=== PATIENT | female | born 1960 | race Caucasian/White ===

== ENCOUNTER 2024-01-27 09:27 | Outpatient (CLI) | payer OTHER, SELFPAY ==
[2024-01-27 23:36] LABS: Chlamydia DNA Amplified* NOT DETECTED (No Detected); GC DNA Amplified* NOT DETECTED (No Detected)
== END 2024-01-27 09:28 | disposition home or self-care (01) ==
PROVIDERS: PCP Physician Assistant Medical; Visit Provider Physician Assistant Medical
DX: I10 Essential (primary) hypertension (principal); Z13.29 Encounter for screening for other suspected endocrine disorder; Z11.3 Encounter for screening for infections with a predominantly sexual mode of transmission
CPT/HCPCS: 80053; 84443; 86703; 86803; 87491; 87591

== ENCOUNTER 2024-02-08 08:29 | Outpatient (CLI) | payer OTHER, SELFPAY | END 2024-02-08 08:30 | disposition home or self-care (01) | LOC: NFLDREF 02-09 06:39 | PROVIDERS: PCP Physician Assistant Medical; Referring Provider Physician Assistant Medical; Visit Provider Physician Assistant Medical | DX: Z13.220 Encounter for screening for lipoid disorders (principal) | CPT/HCPCS: 80061 ==

== ENCOUNTER 2024-02-15 13:45 | Outpatient (CLI) | payer OTHER, SELFPAY ==
--- NOTE | 2024-02-15 14:00 | CT_ITS ---
Patient: AGNIESZKA TIDWELL Facility:?[facility] Patient ID:?[id number] Site Patient ID:?[id number]. Site :?[id number] Study:?CT-Chest LUNG SCREENING LOW-DOSE W/O-02/15/2024 2:03:51 PM Ordering Physician:HEIKE Final Report: INDICATION: Lung cancer screening. Fifty year smoking history. TECHNIQUE: Low-dose volumetric helical scanning of the thorax was performed without IV contrast material. Coronal and sagittal reconstructions were obtained. COMPARISON: None. FINDINGS: No pulmonary nodule is identified. The lungs are clear. There is no significant airway abnormality. No pleural effusion is demonstrated. There is no mediastinal or hilar lymph adenopathy. The heart size is normal. Images of the upper abdomen demonstrate a fatty, mildly enlarged liver. IMPRESSION: 1. No pulmonary nodule evident. Lung-RADS CATEGORY 1: NEGATIVE: Continue annual screening with low-dose chest CT in 12 months is recommended. 2. Fatty, mildly enlarged liver. Please note that all CT scans at this facility use dose modulation, iterative reconstruction, and/or weight-based dosing when appropriate to reduce radiation dose to as low as reasonably achievable. Dictated by Artur Bell MD @ 02/16/2024 9:55:45 AM Signed by:?Artur Bell MD @02/16/2024 9:55:45 AM (Electronic Signature)
== END 2024-02-15 13:46 | disposition home or self-care (01) ==
LOC: CT 13:46
PROVIDERS: PCP Physician Assistant Medical; Visit Provider Physician Assistant Medical
DX: Z12.2 Encounter for screening for malignant neoplasm of respiratory organs (principal); K76.0 Fatty (change of) liver, not elsewhere classified; Z72.0 Tobacco use
CPT/HCPCS: 71271

== ENCOUNTER 2024-04-20 10:00 | Outpatient (CLI) | payer OTHER, SELFPAY | END 2024-04-20 10:01 | disposition home or self-care (01) | PROVIDERS: PCP Physician Assistant Medical; Visit Provider Physician Assistant Medical | DX: E78.5 Hyperlipidemia, unspecified (principal); I10 Essential (primary) hypertension | CPT/HCPCS: 80053; 80061 ==

== ENCOUNTER 2024-05-25 07:33 | Outpatient (CLI) | payer OTHER, SELFPAY ==
[2024-05-25 09:33] VITALS: BP 140/80; PULSE 104; RESP 18
[2024-05-25 10:52] VITALS: BP 140/80; PULSE 105; RESP 18
--- NOTE | 2024-05-25 14:51 | W.PM.STED ---
Stress Test Note Date Date of test: 05/25/24 Providers Primary care provider: Yris Nickerson Stress test physician: Mike Mcpherson Stress Test Note Stress test ordered: Stress Myoview Indication for test: Shortness of breath Stress test medicine: None Results discussion: Patient is a very nice 63-year-old lady who presents for the above test after discussion the risks benefits side effects she would like to proceed. Pretest EKG shows occasional PACs, ventricular rate is 85, the blood pressure 132/78. Standard Bebo protocol is done for a duration of 5 minutes, she achieved a metabolic equivalent of 6.8 Mets, with a maximum heart rate of 142 which is 106% of the maximum. She did have some shortness of breath and test had to be terminated because of this. During this test there were no EKG changes suggestive of ischemia. She recovered normally Impression: Negative electrographic portion of stress Myoview, inducement of shortness of breath, conditioning was felt to be poor Follow up suggested: Await nuclear images, clinical correlation with these will be needed, patient left this testing facility in good condition, there were no complication
== END 2024-05-25 10:35 | disposition home or self-care (01) ==
LOC: STRESS 07:33
PROVIDERS: PCP Physician Assistant Medical; Visit Provider Physician Assistant Medical
DX: R06.00 Dyspnea, unspecified (principal)
CPT/HCPCS: 78452; 93016; 93017; A9500

== ENCOUNTER 2025-04-19 14:15 | Outpatient (CLI) | payer BC, SELFPAY ==
--- NOTE | 2025-04-19 14:30 | XR_ITS ---
Patient: AGNIESZKA TIDWELL Facility:?[facility] Patient ID:?[id number] Site Patient ID:?[id number]. Site :?1960 Study:?DEXA-Bone Density L SPINE & BILAT HIPS-04/19/2025 4:06:16 PM Ordering Physician:DENNIS BURROUGHS Final Report: DXA BONE MINERAL DENSITY STUDY Reason for exam: Asymptomatic menopausal state. Current height (in): 66. Weight (lb): 215. Menopause age: 49. Ethnicity: White. 1. Have you had a previous hip or vertebral fracture? No. 2. Have you had any fractures during your adult life which did not result from significant trauma (e.g., auto accident)? No. 3. Did either of your parents have a hip fracture? No. 4. Do you smoke? Yes. 5. Have you ever taken Glucocorticoids? Yes. 6. Do you have rheumatoid arthritis? No. 7. Do you have secondary osteoporosis? No. 8. Do you drink 3 or more alcoholic drinks per day? No. 9. Are you being treated for osteoporosis? No. 10. Have you ever taken any of the following medications: Actonel, Evista, Fosamax, Miacalcin, Reclast, Boniva, Forteo, HRT (i.e. estrogen/hormone therapy), Protelos, Prolia, Vitamin D, Calcium, other ? please specify. ANSWER: No. 11. Do you have any of the following medical conditions: Anorexia or bulimia, asthma or emphysema, end stage renal disease, hyperparathyroidism, any seizure disorders, cancer, inflammatory bowel diseases, hysterectomy, other ? please specify. ANSWER: No. 12. What was your maximum height (inches)? 66. 13. Do you perform weight bearing exercise regularly? No. 14. Do you regularly consume dairy products? Yes. No. 15. Do you drink caffeinated beverages? Yes. 16. At what age did your period start? 11. 17. Are you premenopausal? No. 18. How many full-term pregnancies have you had? 2. 19. Have you ever missed your period for more than 6 months in a row (not including or menopause)? No. TECHNIQUE: Bone mineral density study was performed using the [employer]. FINDINGS: The results of the study expressed as bone mineral density (BMD) are as follows: Lumbar spine L1 to L4: BMD: 0.923 g/cm2. T-score: -1.1. Z-score: 0.7. Neck Left: BMD: 0.789 g/cm2. T-score: -0.5. Z-score: 1.0. Right: BMD: 0.764 g/cm2. T-score: -0.8. Z-score: 0.8. Total Left: BMD: 0.886 g/cm2. T-score: -0.5. Z-score: 0.8. Right: BMD: 0.884 g/cm2. T-score: -0.5. Z-score: 0.8. IMPRESSION: Osteopenia. Comparison exams done prior to 03/2020 were performed on different unit, [facility] [employer]. FRAX 10-year Fracture Risk Major Osteoporotic Fracture: 11 percent Hip Fracture: 1.4 percent Reported Risk Factors: [place] () Neck BMD=0.764, BMI=34.7, smoking. Neymar Sawyer M.D. Diagnostic Radiologist [email or web address] BRYN/juan ramon D& Transcribed: 5:00 p.mLevar delatorre/Dictated by: Neymar Sawyer MD @ 04/20/2025 10:51:00 AM (Electronic Signature)
--- NOTE | 2025-04-19 15:00 | CRLHL7_ITS ---
For Patients: As a result of the Century Cures Act, medical imaging exams and procedure reports are released immediately into your electronic medical record. You may view this report before your referring provider. If you have questions, please contact your health care provider. INDICATION: High risk patient presenting for LDCT lung cancer screening. VISIT TYPE: Annual COMPARISON: 02/15/2024 TECHNIQUE: Low dose CT of the chest without intravenous contrast. Please note that all CT scans at this facility use dose modulation, iterative reconstruction, and/or weight-based dosing when appropriate to reduce radiation dose to as low as reasonably achievable. FINDINGS: Lung Screening Specific (LUNG-RADS) Findings: None. Pulmonary Incidental Findings: Redemonstration chronic lingular subsegmental atelectasis associated with a prominent left cardiophrenic angle fat pad. Potentially Significant (S-Positive) Incidental Findings: None. Please note that emphysema and coronary artery calcifications are not routinely categorized as S-Positive findings as both conditions are expected among individuals eligible for lung cancer screening. Furthermore, findings that are already known and/or have been or are in the process of clinical evaluation also do not require an S modifier per Lung-RADS 2022 guidelines. Other Incidental Findings: Diffuse hepatic steatosis with subtle focal sparing adjacent to the gallbladder fossa, similar in appearance to the prior examination of 02/15/2024. IMPRESSION: 1. No Lung-RADS specific findings. 2. No significant incidental findings. Lung-RADS Category 1 Lung-RADS Modifier: None Recommendation: Recommend continued screening, if eligible, with a LDCT in 12 months. Please note that all CT scans at this facility use dose modulation, iterative reconstruction, and/or weight-based dosing when appropriate to reduce radiation dose to as low as reasonably achievable. Dictated by Andrew Cunha MD @ 04/28/2025 2:15:49 PM (Electronically Signed)
== END 2025-04-19 14:16 | disposition home or self-care (01) ==
PROVIDERS: PCP Physician Assistant Medical; Visit Provider Physician Assistant Medical
DX: Z12.2 Encounter for screening for malignant neoplasm of respiratory organs (principal); Z72.0 Tobacco use; Z78.0 Asymptomatic menopausal state; M85.89 Other specified disorders of bone density and structure, multiple sites
CPT/HCPCS: 71271; 77080

== ENCOUNTER 2025-05-15 08:51 | Outpatient (CLI) | payer BC, SELFPAY | END 2025-05-15 08:52 | disposition home or self-care (01) | LOC: NFLDREF 05-17 11:09 | PROVIDERS: PCP Physician Assistant Medical; Referring Provider Physician Assistant Medical; Visit Provider Physician Assistant Medical | DX: R73.03 Prediabetes (principal); I10 Essential (primary) hypertension; R78.5 Finding of other psychotropic drug in blood; N39.0 Urinary tract infection, site not specified | CPT/HCPCS: 80053; 80061; 84443; 87086 ==

== ENCOUNTER 2025-05-16 12:52 | Outpatient (CLI) | payer BC, SELFPAY ==
[2025-05-18 06:58] LABS: HPV Source Cervix
[2025-05-21 12:16] LABS: Pap Test Digital Imaging Done
== END 2025-05-16 12:53 | disposition home or self-care (01) ==
PROVIDERS: PCP Physician Assistant Medical; Visit Provider Physician Assistant Medical
DX: Z12.4 Encounter for screening for malignant neoplasm of cervix (principal); Z11.51 Encounter for screening for human papillomavirus (HPV)
CPT/HCPCS: 87624; 87625; 88141; 88142; 88175

== ENCOUNTER 2025-06-20 14:40 | Outpatient (CLI) | payer BC, SELFPAY ==
--- NOTE | 2025-06-20 15:00 | CRLHL7_ITS ---
For Patients: As a result of the Century Cures Act, medical imaging exams and procedure reports are released immediately into your electronic medical record. You may view this report before your referring provider. If you have questions, please contact your health care provider. INDICATION: BILATERAL SCREENING MAMMOGRAM, ASYMPTOMATIC 64 Y/O FEMALE COMPARISON: Baseline TECHNIQUE: Digital mammogram in CC and MLO projections including computer-aided detection (CAD) and tomosynthesis. BREAST COMPOSITION: There are scattered areas of fibroglandular density. FINDINGS: No suspicious findings. ASSESSMENT: BI-RADS 1 Negative RECOMMENDATION: Annual screening mammogram. A lay language report of this examination will be provided to the patient. Dictated by: Neymar Sawyer MD @ 06/21/2025 08:19:31 (Electronically Signed)
== END 2025-06-20 14:41 | disposition home or self-care (01) ==
LOC: MAMMO 14:40
PROVIDERS: PCP Physician Assistant Medical; Visit Provider Physician Assistant Medical
DX: Z12.31 Encounter for screening mammogram for malignant neoplasm of breast (principal)
CPT/HCPCS: 77063; 77067